=== PATIENT | female | born 1935 | race African-American/Black ===

== ENCOUNTER 2019-05-15 15:16 | Inpatient (IN) ==
[2019-05-15] MEDS ORDERED: ASPIRIN PR ONE (15:24)
[2019-05-15] MEDS ORDERED: ASPIRIN PO ONE (15:24)
--- NOTE | 2019-05-15 15:42 | Diag Imaging Result Doc PS360 ---
EXAM: CHEST-2 VIEWS 05/15/2019 HISTORY: SOB TECHNIQUE: PA and lateral chest COMMENT: There is an ill-defined alveolar opacity just above the minor fissure in the right upper lobe. There are no previous radiographs available for comparison, however compared to the previous thoracic CT of 12/07/2012 this abnormality was not clearly present previously. The heart size and pulmonary vascularity are within normal limits. IMPRESSION: Right upper lobe pneumonia. Advise follow-up until clear. Electronically signed by Bruce Fontanez 05/15/2019 3:40 PM
--- NOTE | 2019-05-15 15:56 | EKG Report ---
Test Performed on : 05/15/2019 3:26:43 PM Test Reason : SOB Blood Pressure : / mmHG Vent. Rate : 093 BPM Atrial Rate : 093 BPM P-R Int : 138 ms QRS Dur : 080 ms QT Int : 328 ms P-R-T Axes : -27 028 -59 degrees QTc Int : 407 ms Normal sinus rhythm. with sinus arrhythmia. Nonspecific ST and T wave abnormality Abnormal ECG When compared with ECG of 09-MAR-2015 12:15, No significant change was found Unconfirmed Result
[2019-05-15] MEDS ORDERED: ROCEPHIN 1 GM in NS 50 ML IV ONE (15:59)
[2019-05-15 16:02] LABS: INR 2.28; PROTIME 25.7 Seconds (11.0-16.0)
[2019-05-15 16:03] LABS: PTT 42.4 Seconds (22.3-41.8)
[2019-05-15 16:12] LABS: AGAP 16; ALB/GLOB RATIO 1.2; ALBUMIN 3.8 g/dL (3.5-5.0); ALKALINE PHOSPHATASE 56 U/L (32-104); BUN 14 mg/dL (8-22); CALCIUM 8.7 mg/dL (8.8-10.2); CHLORIDE 98 mmol/L (98-107); COSMO 271; CREATININE 0.8 mg/dL (0.5-0.9); ESTIMATED GFR > 60; GLUCOSE 180 mg/dL (70-104); GOT 18 U/L (10-30); GPT 15 U/L (10-36); POTASSIUM 3.9 mmol/L (3.5-5.1); SODIUM 133 mmol/L (136-145); TCO2 19 mmol/L (25-35); TOTAL BILIRUBIN 0.62 mg/dL (0.20-1.00); TOTAL PROTEIN 6.9 g/dL (6.3-8.3)
[2019-05-15 16:13] LABS: CK PROFILE 198 U/L (24-173)
[2019-05-15 16:14] LABS: BASO# 0.03 X1000 (0.0-0.2); BASO% 0.1 % (0.0-0.8); HEMOGLOBIN 13.8 g/dL (12.0-16.0); IMM GRAN# 0.39 X1000 (0.0-0.04); IMM GRAN% 1.3 % (0.0-0.5); LYMPH# 2.07 X1000 (1.2-3.4); LYMPH% 7.1 % (20.5-51.1); MCH 28.9 PG (27-31); MCHC 35.4 g/dL (33-37); MCV 81.8 FL (81-99); MONO# 2.82 X1000 (0.11-0.59); MONO% 9.6 % (1.7-9.3); MPV 11.1 FL (7.4-10.4); NEUT# 24.02 X1000 (1.4-6.5); NEUT% 81.9 % (42.2-75.2); PLT 194 X1000 (130-400); RBC 4.77 XMIL (4.2-5.4); RDW 13.8 % (11.5-14.5); WBC 29.33 X1000 (4.8-10.8)
[2019-05-15 16:32] LABS: CK INDEX 0.9 (0.0-2.5); CK-MB 1.77 ng/mL (0.0-5.0)
[2019-05-15] MEDS ORDERED: LEVAQUIN 750 MG/D5W 750 MG/150 ML IVPB IV ONE (18:43)
[2019-05-15] MEDS ORDERED: NS 1,000 ML IV ONE (18:44)
--- NOTE | 2019-05-15 19:46 | PROVIDER DOCUMENTATION ---
This chart was entered by Skye Del Rio Scribe, acting as scribe for Florentino Estrada MD. HPI-General Adult - General Chief Complaint: Chest Pain Stated Complaint: rt upper abd pain, tachy, fever 102.7 Time Seen by Provider: 05/15/19 15:32 Source: patient, family Allergies/Adverse Reactions: Patient Allergies Allergy/AdvReac Type Severity Reaction Status Date / Time tetracycline Allergy HIVES Verified 03/09/15 12:28 Home Medications: Home Medication List Medication Instructions Recorded Confirmed Last Taken Type Acetaminophen [Tylenol Extra 500 mg PO PRN PRN 03/09/15 05/15/19 Unknown History Strength] Cyanocobalamin (Vitamin B-12) 1,000 mcg SL DAILY 03/09/15 05/15/19 03/11/15 09:00 History [Vitamin B-12] Diphenhydramine [Benadryl] 25 mg PO PRN PRN 03/09/15 05/15/19 Unknown History Docusate Sodium [Colace] 100 mg PO PRN PRN 03/09/15 05/15/19 03/11/15 09:00 History Furosemide 40 mg PO DAILY 03/09/15 05/15/19 03/11/15 09:00 History Glipizide 5 mg PO BID 03/09/15 05/15/19 03/11/15 16:00 History LOVAstatin [Mevacor] 10 tab PO DAILY 03/09/15 05/15/19 03/11/15 21:00 History Levothyroxine [Synthroid] 137 microgm PO DAILY 03/09/15 05/15/19 03/11/15 09:00 History Meclizine HCl [Antivert] 25 mg PO PRN PRN 03/09/15 03/09/15 Unknown History Metformin HCl [Metformin HCl ER] 500 mg PO BID 03/09/15 05/15/19 03/11/15 16:00 History Potassium 99 mg PO DAILY 03/09/15 05/15/19 03/11/15 09:00 History Ramipril 10 mg PO DAILY 03/09/15 05/15/19 03/11/15 09:00 History Ranitidine HCl [Zantac] 150 mg PO PRN PRN 03/09/15 05/15/19 03/11/15 15:00 History Tramadol HCl 50 mg PO 4XDAY 03/09/15 05/15/19 03/11/15 21:00 History Warfarin [Coumadin] 1 mg PO DAILY 03/09/15 05/15/19 03/05/15 History Magnesium Hydroxide [Milk of 1 dose PO PRN PRN 05/15/19 05/15/19 Unknown History Magnesia] Methylprednisolone [Medrol] 4 mg PO BID 05/15/19 05/15/19 Unknown History Primidone [Mysoline] 50 mg PO DAILY 05/15/19 05/15/19 Unknown History - History of Present Illness -Gen Adult Nature of Presenting Problems: pt is a 84 yr old female presenting with 2 day complaint of right chest pain, fatigue, loss of appetite fever(tmax 102.7) and chills. pt seen by PCP and sent here for further evaluation. pt denies cough Location of Pain/Injury: reports: chest (right chest) Pain Radiation: reports: no radiation Quality of Pain: reports: fullness, tightness Severity: reports: moderate Onset/Duration: reports: 2 days ago Timing: reports: still present Context/Activities at Onset: reports: light activity Modifying Factors: improves with: breathing (increases pain). worse with: rest (no improvement) Associated Symptoms: reports: chest pain, fatigue, fever/chills, loss of appetite, shortness of breath, weakness. denies: back/neck pain, cough, dizziness, EENT symptoms, headaches, sinus congestion/drainage Similar Symptoms Previously?: Yes Recently seen or treated by another doctor?: Yes (seen by PCP for same today) Review of Systems - Adult - REVIEW OF SYSTEMS - ADULT Constitutional: reports: chills, fever, fatique Eyes: reports: no symptoms reported Ears, Nose, Mouth & Throat: denies: ear pain, sinus problem, throat pain Cardiovascular: reports: chest pain (right). denies: palpitations, syncope Respiratory: reports: pleurisy, shortness of breath. denies: cough Gastrointestinal: reports: poor appetite. denies: diarrhea, nausea, vomiting Genitourinary: reports: no symptoms reported Musculoskeletal: reports: no symptoms reported Integumentary: reports: no symptoms reported Neurological: denies: dizziness/vertigo, headache/migraines, syncope Psychiatric: reports: no symptoms reported Endocrine: reports: no symptoms reported Hematologic/Lymphatic: reports: no symptoms reported Allergic/Immunologic: reports: no symptoms reported All Other Systems: Reviewed and Negative Past History - Adult - PAST MEDICAL HISTORY-ADULT Review of Records: reports: Old Records Reviewed, Nursing Assessment Review, Medications Reviewed, Social history reviewed & non-contributory. Major Childhood Illnesses: reports: denies history Cardiovascular: reports: denies history Respiratory: reports: denies history Gastrointestinal: reports: denies history Obstetrical/Gynecological: reports: denies history Genitourinary: reports: denies history Musculoskeletal: reports: denies history Neurological: reports: denies history Endocrine/Immune: reports: denies history Other Conditions: reports: denies history - IMMUNIZATION STATUS Childhood Immunizations: See Nurse Assessment Flu Vaccine: See Nurse Assessment - FAMILY HISTORY Family History: reviewed, not pertinent - SOCIAL HISTORY Smoking: non-smoker Substance Use: none/never Living Situation: family Physical Exam-General - PHYSICAL EXAM-ADULT Initial Vital Signs Reviewed: Yes - CONSTITUTIONAL General Appearance: alert, no apparent distress - EYES Eyes: PERRL/EOMI - HEAD, EARS, NOSE, MOUTH & THROAT HENMT: normocephalic/atraumatic, moist mucous membranes, normal ENT inspection - NECK Neck: non-tender, full range of motion, supple, normal inspection - RESPIRATORY Respiratory: decreased breath sounds (bilateral), pain on inspiration, increased rate - CARDIOVASCULAR Cardiovascular: normal peripheral pulses, regular rate, rhythm - GASTROINTESTINAL (ABDOMEN) Abdominal Exam: normal bowel sounds, non tender, soft - LYMPHATIC Lymphatic: no adenopathy - MUSCULOSKELETAL Back Exam: normal inspection, no CVA tenderness, no vertebral tenderness Extremity: normal range of motion, pedal edema (bilateral 2+pitting edema) - SKIN Integumentary: normal color, normal turgor, warm/dry - NEUROLOGIC Neurologic: grossly normal - PSYCHIATRIC Psych/Mental Status: normal mood/affect Progress - PLAN OF CARE/RESULTS Progress/Plan/Lab Results: Vital Signs - 8 hr 05/15/19 15:18 Temperature 99.2 F Pulse Rate 94 H Respiratory Rate 20 Blood Pressure 126/75 O2 Sat by Pulse Oximetry 97 Laboratory Results - last 24 hr 05/15/19 05/15/19 05/15/19 15:31 15:31 15:31 WBC 29.33 H RBC 4.77 Hgb 13.8 Hct 39.0 MCV 81.8 MCH 28.9 MCHC 35.4 RDW Std Deviation 13.8 Plt Count 194 MPV 11.1 H Immature Gran % (Auto) 1.3 H Neut % (Auto) 81.9 H Lymph % (Auto) 7.1 L [place] % (Auto) 9.6 H Eos % (Auto) 0.0 Baso % (Auto) 0.1 Immature Gran # (Auto) 0.39 H Neut # (Auto) 24.02 H Lymph # (Auto) 2.07 [place] # (Auto) 2.82 H Eos # (Auto) 0.00 Baso # (Auto) 0.03 PT INR PTT (Actin FS) D-Dimer, Quantitative Sodium 133 L Potassium 3.9 Chloride 98 Carbon Dioxide 19 L Anion Gap 16 BUN 14 Creatinine 0.8 Estimated GFR/1.73 m2 > 60 BUN/Creatinine Ratio 18 Glucose 180 H Calculated Osmolality 271 Calcium 8.7 L Total Bilirubin 0.62 AST 18 ALT 15 Alkaline Phosphatase 56 Creatine Kinase 198 H Creatine Kinase Index 0.9 CK-MB (CK-2) 1.77 Troponin T Hcf-Q-Eylgciqzdym Pept 1909 H Total Protein 6.9 Albumin 3.8 Globulin 3.1 Albumin/Globulin Ratio 1.2 Plasma Lactate 05/15/19 05/15/19 05/15/19 15:31 15:31 15:31 WBC RBC Hgb Hct MCV MCH MCHC RDW Std Deviation Plt Count MPV Immature Gran % (Auto) Neut % (Auto) Lymph % (Auto) [place] % (Auto) Eos % (Auto) Baso % (Auto) Immature Gran # (Auto) Neut # (Auto) Lymph # (Auto) [place] # (Auto) Eos # (Auto) Baso # (Auto) PT 25.7 H INR 2.28 PTT (Actin FS) 42.4 H D-Dimer, Quantitative < 0.27 Sodium Potassium Chloride Carbon Dioxide Anion Gap BUN Creatinine Estimated GFR/1.73 m2 BUN/Creatinine Ratio Glucose Calculated Osmolality Calcium Total Bilirubin AST ALT Alkaline Phosphatase Creatine Kinase Creatine Kinase Index CK-MB (CK-2) Troponin T < 0.010 Xmf-M-Mkoxgxpwchd Pept Total Protein Albumin Globulin Albumin/Globulin Ratio Plasma Lactate 05/15/19 16:28 WBC RBC Hgb Hct MCV MCH MCHC RDW Std Deviation Plt Count MPV Immature Gran % (Auto) Neut % (Auto) Lymph % (Auto) [place] % (Auto) Eos % (Auto) Baso % (Auto) Immature Gran # (Auto) Neut # (Auto) Lymph # (Auto) [place] # (Auto) Eos # (Auto) Baso # (Auto) PT INR PTT (Actin FS) D-Dimer, Quantitative Sodium Potassium Chloride Carbon Dioxide Anion Gap BUN Creatinine Estimated GFR/1.73 m2 BUN/Creatinine Ratio Glucose Calculated Osmolality Calcium Total Bilirubin AST ALT Alkaline Phosphatase Creatine Kinase Creatine Kinase Index CK-MB (CK-2) Troponin T Jlt-F-Naufjvrptdl Pept Total Protein Albumin Globulin Albumin/Globulin Ratio Plasma Lactate 2.7 H Orders Category Date Time Status Cardiac Monitoring DIRECTED Care 05/15/19 15:25 Active Cardiac Monitoring DIRECTED Care 05/15/19 16:24 Active IV Insertion ORDERED Care 05/15/19 16:24 Active Notify MD of + Sepsis Screen NOW Care 05/15/19 16:24 Active Notify Physician As Ordered Care 05/15/19 16:24 Active Notify Physician As Ordered Care 05/15/19 18:47 Active Oxygen Therapy- ED Nursing DIRECTED Care 05/15/19 15:25 Active Saline Loc NOW Care 05/15/19 15:25 Active CHEST-2 VIEWS [RAD] Stat Exams 05/15/19 15:25 Completed BLOOD CULTURE [BLDCUL] Stat Lab 05/15/19 16:28 Ordered CBC WITH ELECTRONIC DIFF [HEME] Stat Lab 05/15/19 15:31 Completed CK PROFILE [SP CHEM] Stat Lab 05/15/19 15:31 Completed COMPREHENSIVE METABOLIC PANEL [CHEM] Stat Lab 05/15/19 15:31 Completed D-DIMER [COAG] Stat Lab 05/15/19 15:31 Completed LACTATE, PLASMA [CHEM] Q3H Lab 05/15/19 16:28 Completed LACTATE, PLASMA [CHEM] Q3H Lab 05/15/19 19:30 Uncollected LACTATE, PLASMA [CHEM] Q3H Lab 05/15/19 22:30 Uncollected PRO B-NATRIURETIC PEPTIDE Stat Lab 05/15/19 15:31 Completed PROTIME WITH INR [COAG] Stat Lab 05/15/19 15:31 Completed PT [PROTIME WITH INR] [COAG] Stat Lab 05/15/19 18:46 Uncollected PTT [COAG] Stat Lab 05/15/19 15:31 Completed TROPONIN T Stat Lab 05/15/19 15:31 Completed TROPONIN T Stat Lab 05/15/19 16:24 Uncollected URINALYSIS W/POSS RFLX CULT [URINALYSIS] Stat Lab 05/15/19 16:24 Uncollected 0.9% Sodium Chloride Inj [Ns] 1,000 ml Med 05/15/19 18:44 Active IV 999 mls/hr Aspirin Med 05/15/19 15:24 Discontinued 300 mg CA NOW ONE Aspirin Med 05/15/19 15:24 Discontinued 325 mg PO NOW ONE CefTRIAXONE [Rocephin] 1 gm Med 05/15/19 15:59 Discontinued 0.9% Sodium Chloride Inj [Ns] 50 ml IV NOW Levofloxacin 750 mg/D5w [Levaquin 750 mg/D5w] Med 05/15/19 18:43 Active 750 mg in 150 ml IV NOW CP/SOB/Palp >45 yrs of Age Stat Oth 05/15/19 15:24 Ordered Oxygen Device Stat Oth 05/15/19 16:24 Active Oxygen Device Stat Oth 05/15/19 18:47 Active EKG [EKG] Stat Ther 05/15/19 15:25 Draft Result Diagrams: 05/15/19 15:31 05/15/19 15:31 - EKG 1 Time of EKG reading by physician:: 15:26 EKG Read and Signed by:: Lin Hernandez EKG Interpretation (*Must complete 3 of following elements*): Abnormal (non specific st and t wave abnormality) Rate: 93 Rhythm: nsr with sinus arrhythmia [place]: normal QRS: normal CA Interval: normal - XRAY 1 XRAY Study: Chest Impression: Abnormal ( EXAM: CHEST-2 VIEWS 05/15/2019 HISTORY: SOB TECHNIQUE: PA and lateral chest COMMENT: There is an ill-defined alveolar opacity just above the minor fissure in the right upper lobe. There are no previous radiographs available for comparison, however compared to the previous thoracic CT of 12/07/2012 this abnormality was not clearly present previously. The heart size and pulmonary vascularity are within normal limits. IMPRESSION: Right upper lobe pneumonia. Advise follow-up until clear. Electronically signed by Bruce Fontanez 05/15/2019 3:40 PM 05/15/19 1540 Interpreting Physician: Bruce Fontanez MD Dictated Date/Time: 05/15/19 [id number] cc: Lin Hernandez MD; Marques Robles MD) Comparison with other Films: changes noted (12/07/12) - CONSULTS/PCP/HOSPITALIST Notification #1 *Consult/PCP/Hospitalist*: Dr. Silveira, hospitalist Time Discussed: 20:30 Consult Disposition: Admit Departure - Departure Date of Disposition Decision: 05/15/19 Time of Disposition Decision: 19:45 DIAGNOSIS: Right upper lobe pneumonia Qualifiers: Pneumonia type: due to unspecified organism Qualified Code(s): J18.1 - Lobar pneumonia, unspecified organism Disposition: ADMITTED INPATIENT 09 Certified Medical Emergency: Emergent Condition: Stable - Critical Care Note This patient required my direct & personal management of CC.: Yes Attestation - Physician/ RAVEN Attestation Patient care was provided by Advanced Practice Provider:: No The physician spent face to face time with patient:: Yes Advanced Practice Provider documentation review:: Supervising physician onsite and consulted in the evaluation and care of this patient. The physician did have a face to face encounter with the patient. This chart was documented by the indicated scribe, (Skye Del Rio Scribe) and accurately reflects the services I performed and decisions made by me, Florentino Estrada MD, as attested by the provider's signature.
[2019-05-15 20:07] LABS: INR 2.02; PROTIME 23.4 Seconds (11.0-16.0)
[2019-05-15] MEDS ORDERED: TYLENOL PO PRN (21:47)
[2019-05-15] MEDS ORDERED: ZOFRAN IV PRN (21:47)
[2019-05-15] MEDS ORDERED: DEMEROL IM ONE (21:54)
--- NOTE | 2019-05-15 23:16 | HISTORY AND PHYSICAL ---
CHIEF COMPLAINT: Right-sided chest pain. HISTORY OF PRESENT ILLNESS: This 84-year-old black female is a private patient of Dr. Robles. She, apparently, had been having a couple of days of pain under her right rib cage, although she was eating and drinking fairly well, she has become progressively weaker. She, apparently, had fever at [facility] and was sent to the emergency room for further evaluation. In the emergency room, she was revealed to have an elevated white blood cell count and a right upper lobe infiltrate at the level of the fissure on the right side, consistent with pneumonia. In speaking with her son, he stated that she was running fever since last night. For the last 2 days, her p.o. intake has declined, but has been still fairly good. Due to age and seriousness of the condition, the patient is admitted for definitive medical treatment. PAST MEDICAL HISTORY: 1. Type 2 diabetes mellitus, controlled with oral medications. 2. Hypertension. 3. Essential tremor. 4. Hypothyroidism. 5. History of DVT and extensive PE in 2006. She is currently on warfarin. 6. Chronic lymphedema of the left lower extremity below the knee. 7. Venous insufficiency, lower extremities. 8. Mitral valve prolapse. 9. Mixed hyperlipidemia. 10. The patient states that she had a stroke many years ago but there were no residual deficits. I do not have any documentation of this on her records that were submitted by Dr. Robles. ALLERGIES: Tetracycline. PRESENT MEDICATIONS: Primidone 50 mg p.o. at bedtime, ramipril 10 mg p.o. daily, tramadol 50 mg p.o. q.6 hours p.r.n., warfarin 1 mg daily and also warfarin 5 mg every day at bedtime, glipizide 5 mg p.o. daily, levothyroxine 137 mcg p.o. daily, lovastatin 20 mg p.o. at bedtime, metformin 500 mg p.o. b.i.d., furosemide 40 mg p.o. daily, Colace 100 mg p.o. daily. SOCIAL HISTORY: The patient is a nonsmoker for life. She does not use any alcohol or any other controlled substances. FAMILY HISTORY: Significant for heart disease, hyperlipidemia, diabetes, and stroke. REVIEW OF SYSTEMS: The patient had some mild fever, apparently, today, she did not have any shaking chills. She does have an essential tremor and son stated that it might be difficult at times to tell why she is shaking or how much. She denies any visual change or hearing change. She has had no swallowing difficulty. No nausea, vomiting. She has had no constipation or diarrhea. She denies any problems with urination, pain, burning, or otherwise. She has had no chest pain or palpitations, other than the right-sided chest pain that she described. She has been coughing a little bit, but nothing has come up, really the cough is not a primary feature of her initial complaint. She has not really been short of breath. She denies any dizziness or vertigo. She has had no rash. PHYSICAL EXAMINATION: VITAL SIGNS: At the time of my examination, her last vital signs show temperature 100 degrees Fahrenheit, pulse rate of 86, respiratory rate of 18, blood pressure 123/98, 96% saturated on room air. GENERAL: She is a well-developed, elderly, black female in no acute distress, although she appears somewhat tired. She is easily aroused, opens her eyes, and tries to answer questions and follow commands appropriately. LUNGS: The sclerae are anicteric. The oral mucosa slightly dry but not parched. It is generally of normal coloration. NECK: Reveals no carotid bruits or JVD. The patient gives a poor respiratory effort, but there does seem to be diminished breath sounds, really more so posteriorly and more in the right base than the right upper lobe, as it is visible on x-ray. She is not wheezing. She does not seem to struggle with breathing. She seems to have difficulty following the command for breathing in and out. CARDIOVASCULAR: Regular. ABDOMEN: Shows bowel sounds are present. She is nontender and nondistended. EXTREMITIES: There is no significant peripheral edema. The left leg is swollen and in a lymphedematous state, and has been that way for quite some time according to the son. She has discoloration along the pretibial area on the left, consistent with venous insufficiency as well. LABORATORY: White cell count 29.3, hematocrit 39. PT is 23, INR 2.02. D-dimer is less than 0.27, carbon dioxide is low at 19, glucose is 180. CK is 198. Troponin is negative x2. ProBNP is elevated at 1909. ASSESSMENT/PLAN: 1. The patient is admitted for community-acquired pneumonia. We will give her Rocephin and Zithromax. We will give her some breathing treatments and oxygen as needed. 2. Deep venous thrombosis prophylaxis will not be necessary. We will add some intermittent compression boots to her stable regimen of warfarin as a deep venous thrombosis prophylaxis. 3. We will continue to check blood sugars twice daily and address those if they seem to be spiraling out of control. We will restart her regular diabetic medications. 4. Hypertension. We are aware of this. She will continue her usual medications as previously. 5. Hypothyroidism. We will continue her usual dose 137 mcg daily. 6. Essential tremor. We will continue the patient's primidone. 7. Hyperlipidemia. We will continue the patient's usual medications. 8. These plans were discussed with the patient and her son and they were in agreement with proceeding in this fashion. cc: MD Marques Wynn MD
[2019-05-16 01:25] LABS: URINE SOURCE CLEAN CATCH
[2019-05-16 01:29] LABS: BILIRUBIN URINE NEGATIVE (NEGATIVE); BLOOD URINE TRACE (NEGATIVE); COLOR YELLOW; GLUCOSE URINE NEGATIVE (NEGATIVE); KETONE URINE NEGATIVE (NEGATIVE); LEUKOCYTES URINE LARGE (NEGATIVE); NITRITE URINE POSITIVE (NEGATIVE); PROTEIN URINE TRACE mg/dL (NEGATIVE); SP GRAVITY URINE 1.016; TURBIDITY URINE HAZY (CLEAR); UROBILINOGEN URINE NORMAL (NORMAL)
[2019-05-16 01:30] LABS: UR EPITHELIAL CELLS <10 /HPF (<10); URINE BACTERIA NEGATIVE /HPF; URINE RBC <10 /HPF (<10); URINE WBC TNTC /HPF (<10)
[2019-05-16] MEDS ORDERED: ZITHROMAX PO SCH (09:00)
[2019-05-16] MEDS: DUONEB (A & A) INH SCH ×3 (09:48→21:45)
[2019-05-16] MEDS ORDERED: ZANTAC PO PRN (15:56)
[2019-05-16] MEDS ORDERED: COLACE PO PRN (15:56)
[2019-05-16] MEDS ORDERED: TYLENOL PO PRN (15:56)
[2019-05-16] MEDS ORDERED: BENADRYL PO PRN (15:56)
[2019-05-16] MEDS ORDERED: ZOSTRIX TOP PRN (16:17)
[2019-05-16] MEDS: ULTRAM PO SCH ×2 (17:15→22:58)
[2019-05-16] MEDS: MYSOLINE PO SCH (17:16)
[2019-05-16] MEDS: MEVACOR PO SCH (17:16)
--- NOTE | 2019-05-16 18:18 | PROGRESS NOTE ---
DATE: 05/16/2019 INTERVAL HISTORY: Ms. Tejeda was admitted for suspected right lower lobe pneumonia. She has not had any acute events overnight. SUBJECTIVE: Patient's son is at bedside. Patient still continues to complain of right-sided chest pain. She is taking deep shallow breaths. She is denying any coughing. She denies feeling short of breath. She denies having had upper respiratory tract infection related symptoms recently. VITAL SIGNS: Temperature 98.6 degrees, pulse of 78, respiratory rate 18, blood pressure 110/45. She is saturating 97 to 99% on room air. PHYSICAL EXAMINATION: General: She is in mild distress because of right-sided chest pain. HEENT: She has pharyngeal congestion. Neck: No cervical lymphadenopathy. Respiratory: Shallow respirations with inspiratory crackles right infrascapular region. No wheeze or rhonchi. Cardiovascular: S1, S2 normal. No murmur or gallop. Abdomen: Soft. Nontender. Extremities: She has bilateral lower extremity edema, especially left lower extremity which has chronic lymphedema. LABS: Suggestive of leukocytosis. She has normal kidney function. She was also found to have positive nitrite and leukocytes in urine. MICROBIOLOGY: Blood culture and urine culture in lab. IMAGING: Chest x-ray suggests right upper lobe pneumonia. ASSESSMENT AND PLAN: 1. Right upper lobe community-acquired pneumonia. Continue intravenous ceftriaxone as well as azithromycin, albuterol ipratropium nebulization. She meets sepsis criteria. However, her lactate normalized after coming to the hospital and intravenous fluids. Follow up urine antigen and blood culture. 2. Others. Continue levothyroxine for hypothyroidism, lovastatin for hyperlipidemia, primidone for essential seizure, ranitidine for GERD, tramadol for chronic pain, as well as albuterol ipratropium nebulization. Follow up with chest x-ray tomorrow. Plan of care discussed with the patient and her son at bedside. Their questions have been satisfactorily answered. 3. History of DVT PE: continue home warfarin with goal INR 2-3. cc: Bandar Chinchilla MD [facility]
[2019-05-16] MEDS ORDERED: COUMADIN PO SCH (21:00)
[2019-05-16] MEDS: ROCEPHIN 1 GM in NS 50 ML IV SCH (22:58)
[2019-05-16] MEDS: COUMADIN PO SCH (22:59)
[2019-05-17] MEDS: ULTRAM PO SCH ×3 (05:41→20:03)
--- NOTE | 2019-05-17 06:01 | EKG Report ---
Test Performed on : 05/17/2019 05:39:53 AM Test Reason : pos afib Blood Pressure : / mmHG Vent. Rate : 152 BPM Atrial Rate : 304 BPM P-R Int : 000 ms QRS Dur : 074 ms QT Int : 194 ms P-R-T Axes : 252 034 193 degrees QTc Int : 308 ms Atrial flutter. with 2:[address] & T wave abnormality, consider anterior ischemia Abnormal ECG When compared with ECG of 15-MAY-2019 15:26, (Unconfirmed) Atrial flutter. has replaced Sinus rhythm. Vent. rate has increased BY [address] now depressed in Anterior leads Confirmed by Darrin UMAÑA, Eddie Pressley ([id number]) on 05/17/2019 6:07:06 AM
[2019-05-17 08:27] LABS: AGAP 15; BUN 13 mg/dL (8-22); CALCIUM 8.1 mg/dL (8.8-10.2); CHLORIDE 100 mmol/L (98-107); COSMO 273; CREATININE 0.7 mg/dL (0.5-0.9); ESTIMATED GFR > 60; GLUCOSE 149 mg/dL (70-104); POTASSIUM 3.7 mmol/L (3.5-5.1); SODIUM 135 mmol/L (136-145); TCO2 20 mmol/L (25-35)
--- NOTE | 2019-05-17 08:31 | Diag Imaging Result Doc PS360 ---
EXAM: CHEST-2 VIEWS 05/17/2019 HISTORY: Follow up right upper lobe pneumonia TECHNIQUE: AP and lateral chest COMMENT: The inspiration is less optimal than on 05/15/2013. There is increased alveolar opacity in the left base and possibly also in the anterior right upper lobe. Some of this change is probably related to the differences in inspiration however. There does appear to be some pleural fluid bilaterally in the posterior costophrenic sulci. IMPRESSION: Right upper and left lower lobe pneumonia. Bilateral small pleural effusions. Electronically signed by Bruce Fontanez 05/17/2019 8:29 AM
[2019-05-17] MEDS: DUONEB (A & A) INH SCH ×3 (08:43→20:21)
[2019-05-17 08:45] LABS: BASO# 0.03 X1000 (0.0-0.2); BASO% 0.1 % (0.0-0.8); EOS# 0.05 X1000 (0.0-0.7); EOS% 0.2 % (0.0-10.0); HEMATOCRIT 39.4 % (37.0-47.0); HEMOGLOBIN 13.4 g/dL (12.0-16.0); IMM GRAN# 0.08 X1000 (0.0-0.04); IMM GRAN% 0.4 % (0.0-0.5); LYMPH# 2.78 X1000 (1.2-3.4); LYMPH% 13.8 % (20.5-51.1); MCH 28.3 PG (27-31); MCV 83.1 FL (81-99); MONO# 1.64 X1000 (0.11-0.59); MONO% 8.1 % (1.7-9.3); MPV 11.9 FL (7.4-10.4); NEUT% 77.4 % (42.2-75.2); PLT 184 X1000 (130-400); RBC 4.74 XMIL (4.2-5.4); RDW 14.1 % (11.5-14.5); WBC 20.18 X1000 (4.8-10.8)
[2019-05-17] MEDS ORDERED: CARDIZEM IV ONE (08:49)
[2019-05-17] MEDS ORDERED: CARDIZEM 125/NS 125 MG/125 ML IVPB IV SCH (09:00)
[2019-05-17] MEDS ORDERED: LASIX PO SCH (09:00)
[2019-05-17 09:01] LABS: LYMPHS 20 % (21-51); MONO 2 % (1-9); SEGS 78 % (42-75)
[2019-05-17] MEDS: VITAMIN B-12 PO SCH (10:09)
[2019-05-17] MEDS: ZITHROMAX PO SCH (10:09)
[2019-05-17] MEDS: MYSOLINE PO SCH (10:16)
[2019-05-17] MEDS: SYNTHROID PO SCH (10:16)
--- NOTE | 2019-05-17 10:58 | PROGRESS NOTE ---
DATE: 05/17/2019 INTERVAL HISTORY: Overnight, she did develop episodes of tachycardia. EKG yesterday showed atrial flutter with 2:1 block. The patient did not have any chest pain. SUBJECTIVE: She is denying any chest pain, shortness of breath. She states her breathing is slightly better and she is getting stronger, however, she states whenever she tries to pass urine she has tingling sensation. She denies known history of coronary artery disease, congestive heart failure, or atrial flutter. We discussed about chest x-ray findings, persistent pneumonia which is likely contributing to her atrial flutter. VITALS: She has been afebrile with a temperature of 98, pulse of 146, respiratory rate 14, blood pressure 120/96. She is saturating 96% on room air. PHYSICAL EXAMINATION: General: Does not appear in any acute distress. She appears weak. HEENT: Oral cavity is moist. Respiratory: She has decreased air entry with inspiratory crackles bilateral in frontal regions. Cardiovascular: S1, S2 normal, irregularly irregular, tachycardic. No murmur, rub, or gallop. Abdomen: Obese, soft, nontender. Extremities: She has massive left lower extremity edema, chronic lymphedema, and right ankle edema which is less than left. Neurologic: She is alert and oriented x3. LABORATORY: Suggestive of improving leukocytosis, normal hemoglobin, normal platelet count. Normal kidney function. Her troponins are pending. TSH is within acceptable range. MICROBIOLOGY: No data. Blood culture and urine culture are pending. Urine antigens are pending. IMAGING: Chest x-ray today suggests right upper lobe and left lower lobe pneumonia, bilateral small pleural effusions. EKG suggestive of atrial flutter with 2:1 block. ASSESSMENT AND PLAN: 1. Right upper lobe and left lower lobe community-acquired pneumonia. Continue intravenous ceftriaxone and oral azithromycin, follow up on urine antigen result, keep trending CBC as appropriate. Her sepsis appears to be improving. 2. Atrial flutter with 2:1 block. Follow up troponins, serial EKGs, start patient on intravenous diltiazem. She is on oral warfarin. I will follow up with echocardiogram and transfer patient to [facility]. If needed in the future, I may consider Cardiology evaluation. 3. Others. Continue levothyroxine for hypothyroidism; lovastatin for hyperlipidemia; primidone for essential seizure; ranitidine for gastroesophageal reflux disease; tramadol for chronic pain; home warfarin for history of deep venous thrombosis and extensive pulmonary embolism in 2006. 4. Disposition. Will transfer patient to [facility]. Plan of care discussed with her, all questions have been answered. cc: Bandar Chinchilla MD
--- NOTE | 2019-05-17 14:11 | ECHO REPORT ---
ORDER DATE: 05/17/2019 INDICATION: Atrial flutter. FINDINGS: 1. The right atrium appears normal in size at 3.5 cm. 2. Mild tricuspid regurgitation. RV systolic pressure of 39. 3. Normal RV size and systolic function. 4. Mild pulmonic insufficiency. 5. Severe left atrial enlargement with a volume index of 54. 6. No mitral prolapse. Mild mitral regurgitation. No evidence of mitral stenosis. 7. Normal LV size, end-diastolic dimension of 5.2. Normal wall thicknesses with a posterior and interventricular septal wall thickness of 1.1 cm each. Normal LV systolic function. Estimated EF is 60% with normal wall motion. 8. Aortic valve opens well. It is trileaflet. No evidence of stenosis or insufficiency. 9. Aorta appears normal in visualized segments. 10. No pericardial effusion identified. 11. Severe left atrial enlargement. Volume index 54. cc: MD Bandar Ly MD
--- NOTE | 2019-05-17 14:51 | EKG Report ---
Test Performed on : 05/17/2019 2:45:01 PM Test Reason : a flutter Blood Pressure : / mmHG Vent. Rate : 077 BPM Atrial Rate : 077 BPM P-R Int : 110 ms QRS Dur : 082 ms QT Int : 362 ms P-R-T Axes : -16 014 016 degrees QTc Int : 409 ms Sinus rhythm. with short AR with premature supraventricular complexes. Otherwise normal ECG When compared with ECG of 17-MAY-2019 05:39, Sinus rhythm. has replaced Atrial flutter. Vent. rate has decreased BY [address] no longer depressed in Inferior leads ST no longer depressed in Anterolateral leads T wave inversion no longer evident in Anterior leads Confirmed by Darrin UMAÑA, Eddie Pressley ([id number]) on 05/18/2019 9:08:21 AM
[2019-05-17] MEDS: CARDIZEM PO SCH ×2 (16:15→20:04)
[2019-05-17] MEDS: MEVACOR PO SCH (16:15)
[2019-05-17] MEDS: ROCEPHIN 1 GM in NS 50 ML IV SCH (20:03)
[2019-05-17] MEDS: COUMADIN PO SCH (20:04)
[2019-05-18] MEDS: ULTRAM PO SCH ×2 (01:53→09:28)
[2019-05-18] MEDS: CARDIZEM PO SCH ×2 (01:53→09:11)
[2019-05-18 05:26] LABS: BASO# 0.07 X1000 (0.0-0.2); BASO% 0.6 % (0.0-0.8); EOS# 0.23 X1000 (0.0-0.7); EOS% 1.8 % (0.0-10.0); HEMATOCRIT 36.5 % (37.0-47.0); HEMOGLOBIN 12.3 g/dL (12.0-16.0); IMM GRAN# 0.05 X1000 (0.0-0.04); IMM GRAN% 0.4 % (0.0-0.5); LYMPH# 2.49 X1000 (1.2-3.4); MCH 29.1 PG (27-31); MCHC 33.7 g/dL (33-37); MCV 86.3 FL (81-99); MONO# 1.34 X1000 (0.11-0.59); MONO% 10.8 % (1.7-9.3); MPV 11.8 FL (7.4-10.4); NEUT# 8.26 X1000 (1.4-6.5); NEUT% 66.4 % (42.2-75.2); PLT 208 X1000 (130-400); RBC 4.23 XMIL (4.2-5.4); RDW 14.5 % (11.5-14.5); WBC 12.44 X1000 (4.8-10.8)
[2019-05-18 06:07] LABS: AGAP 14; BUN 15 mg/dL (8-22); CALCIUM 8.1 mg/dL (8.8-10.2); CHLORIDE 100 mmol/L (98-107); COSMO 279; CREATININE 0.7 mg/dL (0.5-0.9); ESTIMATED GFR > 60; GLUCOSE 184 mg/dL (70-104); MAGNESIUM 1.6 mg/dL (1.5-2.7); SODIUM 137 mmol/L (136-145); TCO2 23 mmol/L (25-35)
[2019-05-18 08:06] VITALS: BP 146/77
[2019-05-18] MEDS: DUONEB (A & A) INH SCH (08:43)
[2019-05-18] MEDS: VITAMIN B-12 PO SCH (09:10)
[2019-05-18] MEDS: MYSOLINE PO SCH (09:11)
[2019-05-18] MEDS: SYNTHROID PO SCH (09:11)
[2019-05-18] MEDS: ZITHROMAX PO SCH (09:11)
[2019-05-18] MEDS ORDERED: MIRALAX PO SCH (09:45)
[2019-05-18] MEDS ORDERED: MAGNESIUM SULFATE 2 GM/S.W.I. 2 GM/50 ML IVPB IV ONE (09:45)
[2019-05-18] MEDS ORDERED: CARDIZEM CD PO SCH (09:45)
[2019-05-18] MEDS ORDERED: MAG-OX PO ONE (11:00)
--- NOTE | 2019-05-18 23:04 | DISCHARGE SUMMARY ---
ADMISSION DATE: 05/15/2019 DISCHARGE DATE: 05/18/2019 DISCHARGE DISPOSITION: Home with family. DISCHARGE DIAGNOSIS: 1. Bilateral community-acquired pneumonia. 2. Atrial flutter with 2:1 block. OTHER DIAGNOSIS: 1. Hypothyroidism. 2. Hyperlipidemia . 3. Essential tremor. 4. Chronic gastroesophageal reflux disease. 5. Chronic pain. 6. History of deep vein thrombosis and extensive pulmonary embolism in 2006 on warfarin. 7. Chronic lymphedema of left lower extremity with venous insufficiency. 8. History of mitral valve prolapse. CONSULTATION: None. DISCHARGE MEDICATIONS: Meclizine 25 mg as needed for dizziness, Benadryl 25 mg as needed for itching, docusate 100 mg as needed for constipation, warfarin 1 mg daily, furosemide 40 mg daily, glipizide 5 mg b.i.d., methylprednisolone 4 mg b.i.d. the indication of which was not clear, metformin 500 mg b.i.d., lovastatin 10 mg daily, magnesium hydroxide 1 dose as needed, primidone 50 mg daily, potassium 99 mg daily, ramipril 10 mg daily, levothyroxine 137 mcg daily, tramadol 50 mg 4 times a day, acetaminophen 500 mg p.o. as needed, vitamin B12 1000 mcg sublingual daily, ranitidine 150 mg as needed for GERD, diltiazem 120 mg daily controlled release 30 capsules have been prescribed with 1 refill, Cefuroxime 500 mg b.i.d. 8 tablets have been prescribed, azithromycin 500 mg daily 3 tablets have been prescribed. VITALS: At the time of discharge temperature 98.6 degrees, pulse 73, respiratory rate 21, blood pressure 140/77, saturating 94% room air. PHYSICAL EXAMINATION: General: Does not appear in any acute distress. Oral cavity is moist. Air entry bilateral equal. No wheeze or crackles. S1, S2 normal. No murmur or gallop. Abdomen soft, nontender. She has bilateral lower extremity edema more pronounced on left than on the right side. She is alert and oriented x3. She has been able to go to the bathroom and come back with minimal support. SIGNIFICANT LABS: Her WBC was 29,000 on admission which improved to 12,000 at discharge, her hemoglobin is 12.3, platelet 201,000. Sodium 137, potassium 4, BUN 15, creatinine 0.7, blood sugar 184, magnesium is 1.6, she is getting 800 mg of magnesium oxide once, her troponins were negative x3, her proBNP was 1900. Her urine had multiple WBCs. Her blood culture, urine culture did not have any growth. On admission chest x-ray had suggested right upper and left lower lobe pneumonia and bilateral small pleural effusions. Her admission EKG had normal sinus rhythm with sinus arrhythmia. On May 17 she had developed atrial flutter with 2 is to 1 conduction which resolved after IV diltiazem. Echocardiogram had suggested normal left ventricular size with systolic function of 60% with normal wall motion. She did have severe left atrial enlargement with a volume index of 54. There was no mitral valve prolapse. HOSPITAL COURSE SUMMARY: Mr. Tejeda is 84 years old lady with past medical history of essential hypertension and type 2 diabetes mellitus who came in with chief complaints of right rib cage pain pleuritic in nature of about 2 to 3 days duration with profound weakness. She was also noticed to have fever at her regular doctor's office so she was sent to the emergency room. In the emergency room she was found to have leukocytosis with WBC of 29,000 and right upper lobe lung infiltrate so the hospitalist team admission was requested. She was started on intravenous fluids and intravenous antibiotics following which her symptoms had started improving. While inside the hospital she developed atrial flutter with rapid ventricular rate and was given intravenous diltiazem bolus after which she converted to normal sinus rhythm. Later on her heart rhythm remained sinus on oral diltiazem. She was already on warfarin for her history of DVT PE which was sufficient for primary CVA prophylaxis. At the time of discharge detailed discharge instructions were provided to her and her son about following up with regular doctor and discussing about repeating blood test or chest x-rays as necessary. TIME SPENT: More than 30 minutes. cc: Bandar Chinchilla MD [id number]
== END 2019-05-18 11:13 | disposition home or self-care (01) | DRG 194 ==
LOC: ED 15:16 → SUATTDRO 22:15 → 3N 22:15 → 2N 05-17 13:59
PROVIDERS: ATTEND Internal Medicine